=== PATIENT | male | born 1985 | race African-American/Black ===

== ENCOUNTER 2021-03-27 19:14 | Inpatient (IN) | payer BC ==
[~2021-03-27] VITALS: Ht 162.6 cm; Wt 65.9 kg
[2021-03-27 19:00] VITALS: BP 102/61
--- NOTE | 2021-03-27 19:44 | PDOC1 ---
History and Physical Date of Service: DOS: DATE: 03/27/21 TIME: 19:37 Chief Complaint: Chief Complain: Chest pain History of Present Illness: HPI: Patient is a 35-year-old -[place] male presented to outside emergency room today due to chest pain along with generalized unwell feeling. Patient reports his symptoms started Wednesday upper respiratory symptoms. He also notes that he has had left-sided chest pain since Wednesday as well. Terms of his chest pain that is left-sided does not really radiate. It is kind of an aching sort of pressure. Reports to me that in his early 20s he would get similar type chest pains have been seen multiple times today and said work-up was negative. Had a recent uncle who from [place] at age of 36. He was incarcerated for several years and discharged from there in 2019. Says he really does not have any problems with his chest pain until this week. Patient is Pfizer COVID vaccinated x2. COVID-positive at outside hospital. Not requiring any supplemental O2. Past Medical/Surgical History: PMH/PSH: Denies any past medical history Allergies: Allergies: Coded Allergies: No Known Drug Allergies (Unverified , 04/27/20) Family History: Family History: Uncle with early [place]. His noticed Social History: Social History: Occasional alcohol use. Occasional vape use. Denies drug use Current Medications: Current Medications Current Medications Ondansetron HCl (Zofran) 4 mg PRN Q6HRS PRN IVP NAUSEA/VOMITING; Start 03/27/21 at 19:45; Status UNV Calcium Carbonate/ Glycine (Tums) 500 mg PRN Q3HRS PRN PO UPSET STOMACH; Start 03/27/21 at 19:45; Status UNV Zolpidem Tartrate (Ambien) 5 mg PRN QHS PRN PO INSOMNIA, MAY REPEAT IN 1HR; Start 03/27/21 at 19:45; Status UNV Info (Non-Icu Electrolyte Protocol) 1 ea PRN DAILY PRN MC SEE COMMENTS; Start 03/27/21 at 19:45; Status UNV Oxycodone HCl (Roxicodone) 5 mg PRN Q3HRS PRN PO BREAKTHROUGH PAIN; Start 03/27/21 at 19:45; Status UNV Morphine Sulfate (Morphine Sulfate) 1 mg PRN Q1HR PRN IV PAIN; Start 03/27/21 at 19:45; Status UNV Morphine Sulfate (Morphine Sulfate) 2 mg PRN Q1HR PRN IV PAIN; Start 03/27/21 a t 19:45; Status UNV Senna/Docusate Sodium (Senna Plus) 1 tab BID PO ; Start 03/27/21 at 21:00; Status UNV Active Scripts Active No Active Prescriptions or Reported Medications ROS: Review of Systems Review of System Unless noted in HPI 14 point review of systems was negative Physical Exam: Physcial Exam: GEN: No apparent distress. Alert and oriented HEENT: Normal cephalic, atraumatic, external auditory canals are patent EYES: Extraocular muscles are intact, pupil are equally round and reactive to light and accommodation MUSCULOSKELETAL: Well developed , well nourished, good range of motion ENDOCRINE: No thyromegaly was palpated LYMPHATICS: No cervical chain or axillary nodes were noted HEMATOPOIETIC: No bruising NECK: Supple, no JVD, no thyromegaly was noted LUNGS: Clear to auscultation in all lung ward without rhonchi or wheezing HEART: RRR, S!, S2 present. Peripheral pulses intact, no obvious murmurs noted ABDOMEN: Soft, nontender. Positive bowel sounds, no organomegaly, normal bowel sounds EXTREMITIES: Without clubbing, cyanosis, or edema. Pedal pulses intact. Negative Homans sign NEUROLOGIC: Normal speech and tone. A&O x 3, moves all extremities, no obvious focal deficits PSYCHIATRIC: Normal affect, normal mood. Stable SKIN: No ulcerations or rashes, good skin turgor, no jaundice VASCULAR: Good capillary refill, neurovascular bundle appears to be intact Assessment/Plan Assessment/Plan Unstable angina history of close relative with early [place], COVID-19 -Presented to outside hospital with upper respiratory symptoms and chest pain -Testing positive for COVID-19. He has received Pneuron vaccines x2. -Start dexamethasone. Not requiring any oxygen do not see need for antibiotics at the moment neither -In terms of chest pain troponin at outside facility was 30. Was started on heparin drip. Pain resolved with outside nitroglycerin -Cardiology consult -We will check an echo -Continue heparin drip from outside for now -Watch troponins overnight -Cardiac diet Justifications for Admission Other Justification RAMIN RIZO MD Mar 27, 2021 19:44
[2021-03-27] MEDS ORDERED: ELECTROLYTE (NON-ICU) PROTOCOL. MC PRN (19:45)
[2021-03-27] MEDS ORDERED: MORPHINE SULFATE 2 MG/ML INJ. IV PRN ×2 (19:45)
[2021-03-27] MEDS ORDERED: ONDANSETRON PF 4 MG/2 ML VIAL. IVP PRN (19:45)
[2021-03-27] MEDS ORDERED: oxyCODONE IR 5 MG TABLET PO PRN (19:45)
[2021-03-27] MEDS ORDERED: NITROGLYCERIN SUBLINGUAL 0.4 MG BOTTLE OF 25. SL PRN (19:45)
[2021-03-27] MEDS ORDERED: HEPARIN 25,000UTS/250ML PREMIX 250 ML IV PRN (19:45)
[2021-03-27] MEDS ORDERED: CALCIUM CARBONATE 500 MG TAB.CHEW PO PRN (19:45)
[2021-03-27] MEDS ORDERED: ZOLPIDEM 5 MG TABLET. PO PRN (19:45)
[2021-03-27] MEDS: SENNOSIDES/DOCUSATE 8.6/50MG TABLET. PO SCH (20:41)
[2021-03-27 22:26] LABS: BASO % 1 % (0-3); EOS # 0.5 x10^3/uL (0.0-0.7); EOS % 9 % (0-3); HEMOGLOBIN 14.4 g/dL (13.0-17.5); LYMPH # 2.4 x10^3/uL (1.0-4.8); LYMPH % 40 % (24-48); MEAN CORPUSCULAR HEMOGLOBIN 31 pg (25-35); MEAN CORPUSCULAR HGB CONC 34 g/dL (31-37); MEAN CORPUSCULAR VOLUME 89 fL (79-100); MONO % 16 % (0-9); NEUT # 2.1 x10^3/uL (1.8-7.7); NEUT % 35 % (31-73); PLATELET COUNT 225 x10^3/uL (140-400); RED BLOOD COUNT 4.72 x10^6/uL (4.30-5.70); RED CELL DISTRIBUTION WIDTH 12.9 % (11.5-14.5); WHITE BLOOD COUNT 6.1 x10^3/uL (4.0-11.0)
[2021-03-27 22:46] LABS: ALBUMIN 3.6 g/dL (3.4-5.0); ALBUMIN/GLOBULIN RATIO 0.9 (1.0-1.7); CALCIUM 8.3 mg/dL (8.5-10.1); CREATININE 0.9 mg/dL (0.7-1.3); GFR 116.9; TOTAL BILIRUBIN 0.3 mg/dL (0.2-1.0); TOTAL PROTEIN 7.4 g/dL (6.4-8.2)
[2021-03-27 22:47] LABS: CHOLESTEROL/HDL RATIO 2.9
[2021-03-27 22:52] VITALS: BP 109/61
[2021-03-28 00:14] LABS: BILIRUBIN,URINE NEGATIVE (NEG); CLARITY,URINE CLEAR; COLOR,URINE YELLOW; NITRITE,URINE NEGATIVE (NEG); PROTEIN,URINE NEGATIVE (NEG-TRACE)
[2021-03-28 00:21] LABS: BACTERIA,URINE 0 /HPF (0-FEW); RBC,URINE 0 /HPF (0-2); WBC,URINE RARE /HPF (0-4)
[2021-03-28 02:36] VITALS: BP 93/52
[2021-03-28 07:00] VITALS: BP 90/50
[2021-03-28] MEDS: SENNOSIDES/DOCUSATE 8.6/50MG TABLET. PO SCH (08:34)
[2021-03-28] MEDS ORDERED: DEXAMETHASONE SOD PHOS 4 MG/ML VIAL IVP SCH (09:00)
--- NOTE | 2021-03-28 09:18 | PDOC ---
[employer] PROGRESS NOTE Date of Service DOS: DATE: 03/28/21 TIME: 09:17 Chief Complaint Chief Complaint A/P: Chest pain -more likely GERD or pleuritic pain. Possibility of myocarditis will go home on aspirin Abnormal EKG -strain from acute COVID-19 mild myocarditis. She went cardiology was on heparin gtt. can discontinue home aspirin therapy COVID 19 -fully vaccinated with 2 doses of Pfizer is not eligible for his booster for another month. Not hypoxic and feels his symptoms are actually improving he can go home with supportive care History of Present Illness History of Present Illness Mr Ashley is a 35 year old male who presents with 4-day history of chills, body aches, fatigue, nasal congestion, sore throat and chest pain to [facility] in [place], [place]. Patient describes his chest pain as an intermittent pressure, as if someone is pushing on his chest. His sore throat has progressively worsen ed. Patient received Pfizer vaccine x2 this fall, but has not had a flu shot this season. Patient denies objective fever, palpitations, shortness of breath and productive cough. WBC 4.9, Hb 14.5, platelets 222, NA 139, K3.8, BUN 10, CR 0.9, glucose 81, LFTs within normal laboratory limits, troponin high-sensitivity is 30, influenza negative rapid COVID-19 positive, INR 1 Chest radiograph with no acute abnormality EKG sinus rate of [address] elevations in 1 to V3 to V6 V4 V5 and TWI in 3. 03/28. Seen bedside. He was transferred to [facility] for further care and cardiac evaluation. High-sensitivity troponin this point is 30 and telemetry with no significant abnormalities. Discussed with cardiology as patient's pain has completely resolved and he is not hypoxic this could be mild or early myocarditis due to COVID as he is already recovering and is 5 days in the continue to isolate for an additional 5 days and follow-up outpatient with cardiology 10 days from now to schedule a TTE. Significant cardiac disease in a paternal uncle in his 30s from unknown cardiac disease, otherwise no other history. Recommended to take aspirin for the next 30 days to decrease risk of thrombosis due to COVID-19. Vitals/I&O Vitals/I&O: Vital Signs Date Time Temp Pulse Resp B/P (MAP) Pulse Ox O2 Delivery O2 Flow Rate FiO2 03/28/21 07:00 96.2 48 15 90/50 (63) 98 Room Air 96.2 I & O 03/27/21 03/27/21 03/28/21 15:00 23:00 07:00 Intake Total 900 ml 600 ml Balance 900 ml 600 ml Physical Exam General: Alert, Oriented X3, Cooperative, No acute distress Heart: Regular rate, Normal S1, Normal S2 Lungs: Clear Abdomen: Normal bowel sounds, Soft Extremities: No clubbing, No cyanosis Skin: No rashes, No breakdown Labs Labs: Laboratory Tests Test 03/27/21 22:10 03/28/21 00:05 03/28/21 04:30 White Blood Count 6.1 x10^3/uL (4.0-11.0) Red Blood Count 4.72 x10^6/uL (4.30-5.70) Hemoglobin 14.4 g/dL (13.0-17.5) Hematocrit 42.0 % (39.0-53.0) Mean Corpuscular Volume 89 fL (79-100) Mean Corpuscular Hemoglobin 31 pg (25-35) Mean Corpuscular Hemoglobin Concent 34 g/dL (31-37) Red Cell Distribution Width 12.9 % (11.5-14.5) Platelet Count 225 x10^3/uL (140-400) Neutrophils (%) (Auto) 35 % (31-73) Lymphocytes (%) (Auto) 40 % (24-48) Monocytes (%) (Auto) 16 % (0-9) Eosinophils (%) (Auto) 9 % (0-3) Basophils (%) (Auto) 1 % (0-3) Neutrophils # (Auto) 2.1 x10^3/uL (1.8-7.7) Lymphocytes # (Auto) 2.4 x10^3/uL (1.0-4.8) Monocytes # (Auto) 1.0 x10^3/uL (0.0-1.1) Eosinophils # (Auto) 0.5 x10^3/uL (0.0-0.7) Basophils # (Auto) 0.0 x10^3/uL (0.0-0.2) Heparin Anti-Xa Act, Unfractionated 0.24 IU/mL (0.30-0.70) 0.41 IU/mL (0.30-0.70) Sodium Level 142 mmol/L (136-145) Potassium Level 4.0 mmol/L (3.5-5.1) Chloride Level 106 mmol/L (98-107) Carbon Dioxide Level 29 mmol/L (21-32) Anion Gap 7 (6-14) Blood Urea Nitrogen 11 mg/dL (8-26) Creatinine 0.9 mg/dL (0.7-1.3) Estimated GFR (Cockcroft-Gault) 116.9 BUN/Creatinine Ratio 12 (6-20) Glucose Level 102 mg/dL (70-99) Calcium Level 8.3 mg/dL (8.5-10.1) Total Bilirubin 0.3 mg/dL (0.2-1.0) Aspartate Amino Transf (AST/SGOT) 16 U/L (15-37) Alanine Aminotransferase (ALT/SGPT) 21 U/L (16-63) Alkaline Phosphatase 80 U/L (46-116) Troponin I High Sensitivity 30 ng/L (4-75) Total Protein 7.4 g/dL (6.4-8.2) Albumin 3.6 g/dL (3.4-5.0) Albumin/Globulin Ratio 0.9 (1.0-1.7) Triglycerides Level 55 mg/dL (0-150) Cholesterol Level 120 mg/dL (0-200) LDL Cholesterol, Calculated 67 mg/dL (0-100) VLDL Cholesterol, Calculated 11 mg/dL (0-40) Non-HDL Cholesterol Calculated 78 mg/dL (0-129) HDL Cholesterol 42 mg/dL (40-60) Cholesterol/HDL Ratio 2.9 Thyroid Stimulating Hormone (TSH) 1.026 uIU/mL (0.358-3.74) Urine Collection Type Unknown Urine Color Yellow Urine Clarity Clear Urine pH 6.0 (<5.0-8.0) Urine Specific [place] 1.025 (1.000-1.030) Urine Protein Negative mg/dL (NEG-TRACE) Urine Glucose (UA) Negative mg/dL (NEG) Urine Ketones (Stick) Negative mg/dL (NEG) Urine Blood Negative (NEG) Urine Nitrite Negative (NEG) Urine Bilirubin Negative (NEG) Urine Urobilinogen Dipstick 1.0 mg/dL (0.2 mg/dL) Urine Leukocyte Esterase Negative (NEG) Urine RBC 0 /HPF (0-2) Urine WBC Rare /HPF (0-4) Urine Squamous Epithelial Cells Few /LPF Urine Bacteria 0 /HPF (0-FEW) Urine Mucus Slight /LPF Comment Review of Relevant I have reviewed the following items rogelio (where applicable) has been applied. Medications: Current Medications Medications (Trade) Dose Ordered Sig/Tristin Route PRN Reason Start Time Stop Time Status Last Admin Dose Admin Senna/Docusate Sodium (Senna Plus) 1 tab BID PO 03/27/21 21:00 03/27/21 20:41 Dexamethasone Sodium Phosphate (Decadron) 6 mg DAILY IVP 03/28/21 09:00 03/28/21 08:33 Justifications for Admission Other Justification RAMIN BHAGAT MD Mar 28, 2021 09:18
[2021-03-28 10:17] VITALS: BP 107/67
--- NOTE | 2021-03-28 10:19 | PDOC2 ---
YOLY MENJIVAR [employer]PERATOR 03/28/21 1019: CARDIAC CONSULT DATE OF CONSULT Date of Consult DATE: 03/28/21 TIME: 10:06 REASON FOR CONSULT Reason for Consult: Chest pain REFERRING PHYSICIAN Referring Physician: Talha SOURCE Source: Chart review, Patient HISTORY OF PRESENT ILLNESS HISTORY OF PRESENT ILLNESS This is a 35 yo male admitted for complains of chest pain. Transferred from [facility]. Reports that this was midchest pressure without nausea vomiting or palpitations and nonradiating. He has been having body aches and productive cough with yellow sputum with fever and chills. He is vaccinated but was tested + for covid-19. No cardiac history and family member with premature [place] is his uncle. He vapes otherwise no recreational drug use. He does not take any routine medications. No further recurrence of apin. PAST MEDICAL HISTORY Past Medical History No pertinent history PAST SURGICAL HISTORY Past Surgical History: No pertinent history FAMILY HISTORY Family History: Coronary Artery Disease (uncleae in his 30s) SOCIAL HISTORY Smoke: No (vaping) ALCOHOL: occassional Drugs: None Lives: with Family CURRENT MEDICATIONS CURRENT MEDICATIONS Current Medications Medications (Trade) Dose Ordered Sig/Tristin Route PRN Reason Start Time Stop Time Status Last Admin Dose Admin Senna/Docusate Sodium (Senna Plus) 1 tab BID PO 03/27/21 21:00 03/27/21 20:41 Dexamethasone Sodium Phosphate (Decadron) 6 mg DAILY IVP 03/28/21 09:00 03/28/21 08:33 ALLERGIES ALLERGIES: Coded Allergies: No Known Drug Allergies (Unverified , 04/27/20) ROS Review of System 14 point ROS evaluated with pertinent positive noted per HPI PHYSICAL EXAM General: Alert, Oriented X3, Cooperative, No acute distress HEENT: Atraumatic, Mucous membr. moist/pink Lungs: Clear to auscultation, Normal air movement Heart: Regular rate (SR), Normal S1, Normal S2, No murmurs Abdomen: Soft, No tenderness Extremities: No cyanosis, No edema Skin: No breakdown, No significant lesion Neuro: Normal speech, Sensation intact Psych/Mental Status: Mental status NL, Mood NL MUSCULOSKELETAL: Full range of motion without pain VITALS/I&O VITALS/I&O: Vital Signs Date Time Temp Pulse Resp B/P (MAP) Pulse Ox O2 Delivery O2 Flow Rate FiO2 03/28/21 07:00 96.2 48 15 90/50 (63) 98 Room Air 96.2 I & O 03/27/21 03/27/21 03/28/21 15:00 23:00 07:00 Intake Total 900 ml 600 ml Balance 900 ml 600 ml LABS Lab: Laboratory Tests Test 03/27/21 22:10 03/28/21 00:05 03/28/21 04:30 White Blood Count 6.1 x10^3/uL (4.0-11.0) Red Blood Count 4.72 x10^6/uL (4.30-5.70) Hemoglobin 14.4 g/dL (13.0-17.5) Hematocrit 42.0 % (39.0-53.0) Mean Corpuscular Volume 89 fL (79-100) Mean Corpuscular Hemoglobin 31 pg (25-35) Mean Corpuscular Hemoglobin Concent 34 g/dL (31-37) Red Cell Distribution Width 12.9 % (11.5-14.5) Platelet Count 225 x10^3/uL (140-400) Neutrophils (%) (Auto) 35 % (31-73) Lymphocytes (%) (Auto) 40 % (24-48) Monocytes (%) (Auto) 16 % (0-9) H Eosinophils (%) (Auto) 9 % (0-3) H Basophils (%) (Auto) 1 % (0-3) Neutrophils # (Auto) 2.1 x10^3/uL (1.8-7.7) Lymphocytes # (Auto) 2.4 x10^3/uL (1.0-4.8) Monocytes # (Auto) 1.0 x10^3/uL (0.0-1.1) Eosinophils # (Auto) 0.5 x10^3/uL (0.0-0.7) Basophils # (Auto) 0.0 x10^3/uL (0.0-0.2) Heparin Anti-Xa Act, Unfractionated 0.24 IU/mL (0.30-0.70) L 0.41 IU/mL (0.30-0.70) Sodium Level 142 mmol/L (136-145) Potassium Level 4.0 mmol/L (3.5-5.1) Chloride Level 106 mmol/L (98-107) Carbon Dioxide Level 29 mmol/L (21-32) Anion Gap 7 (6-14) Blood Urea Nitrogen 11 mg/dL (8-26) Creatinine 0.9 mg/dL (0.7-1.3) Estimated GFR (Cockcroft-Gault) 116.9 BUN/Creatinine Ratio 12 (6-20) Glucose Level 102 mg/dL (70-99) H Calcium Level 8.3 mg/dL (8.5-10.1) L Total Bilirubin 0.3 mg/dL (0.2-1.0) Aspartate Amino Transferase (AST) 16 U/L (15-37) Alanine Aminotransferase (ALT) 21 U/L (16-63) Alkaline Phosphatase 80 U/L (46-116) Troponin I High Sensitivity 30 ng/L (4-75) Total Protein 7.4 g/dL (6.4-8.2) Albumin 3.6 g/dL (3.4-5.0) Albumin/Globulin Ratio 0.9 (1.0-1.7) L Triglycerides Level 55 mg/dL (0-150) Cholesterol Level 120 mg/dL (0-200) LDL Cholesterol, Calculated 67 mg/dL (0-100) VLDL Cholesterol, Calculated 11 mg/dL (0-40) Non-HDL Cholesterol Calculated 78 mg/dL (0-129) HDL Cholesterol 42 mg/dL (40-60) Cholesterol/HDL Ratio 2.9 Thyroid Stimulating Hormone (TSH) 1.026 uIU/mL (0.358-3.74) Urine Collection Type Unknown Urine Color Yellow Urine Clarity Clear Urine pH 6.0 (<5.0-8.0) Urine Specific [place] 1.025 (1.000-1.030) Urine Protein Negative mg/dL (NEG-TRACE) Urine Glucose (UA) Negative mg/dL (NEG) Urine Ketones (Stick) Negative mg/dL (NEG) Urine Blood Negative (NEG) Urine Nitrite Negative (NEG) Urine Bilirubin Negative (NEG) Urine Urobilinogen Dipstick 1.0 mg/dL (0.2 mg/dL) Urine Leukocyte Esterase Negative (NEG) Urine RBC 0 /HPF (0-2) Urine WBC Rare /HPF (0-4) Urine Squamous Epithelial Cells Few /LPF Urine Bacteria 0 /HPF (0-FEW) Urine Mucus Slight /LPF Laboratory Tests 03/27/21 22:10 Laboratory Tests 03/27/21 22:10 ASSESSMENT/PLAN ASSESSMENT/PLAN 1. Atypical CP: likely from episodes of intractable coughing and chest congestion. Trops are normal, EKG SR with early repolarization 2. Viral syndrome with covid-19: vaccinated 3. Vaping 4. Asymptomatic SB: lowest mid40s mainly while asleep Recommendations 1. No further cardiac workup, consider outpt TTE once recovered fromc covid-19 2. May DC from cardiac perspective. MAGAN ORTIZ MD 03/28/21 1420: CARDIAC CONSULT ASSESSMENT/PLAN ASSESSMENT/PLAN Patient seen and evaluated. He is feeling better today. I agree with our nurse practitioners assessment and plan as above. Atypical chest pain. Associated with extensive coughing. Normal troponin. EKG without acute changes. Would continue present medications. Outpatient echo once recovered from COVID. COVID-19. Continue as per the primary and pulmonary services. Mild asymptomatic sinus bradycardia. This occurs usually while asleep. No specific work-up at this time. YOLY MENJIVAR APRN Mar 28, 2021 10:19 MAGAN ORTIZ MD Mar 28, 2021 14:20
--- NOTE | 2021-03-28 13:06 | NUR ---
SS following for discharge planning. SS reviewed pt chart and discussed with pt RN. Pt is from home and is currently on room air. COVID19 positive. Discharge order on the chart for home with self care.
[2021-03-28] MEDS ORDERED: CALC200T23 PO (13:07)
[2021-03-28] MEDS ORDERED: ASPI-886 PO (13:07)
--- NOTE | 2021-03-28 13:13 | PDOC3 ---
Discharge Summary Visit Information Date of Admission: Mar 27, 2021 Date of Discharge: Mar 28, 2021 Admitting Diagnosis: Chest pain Final Diagnosis Chest pain Brief Hospital Course Allergies Allergies Coded Allergies Type Severity Reaction Last Updated Verified No Known Drug Allergies 04/27/20 No Vital Signs Vital Signs Date Time Temp Pulse Resp B/P (MAP) Pulse Ox O2 Delivery O2 Flow Rate FiO2 03/28/21 10:17 95.3 53 20 107/67 (80) 100 Room Air 95.3 Lab Results Laboratory Tests Test 03/27/21 22:10 03/28/21 00:05 03/28/21 04:30 03/28/21 10:25 White Blood Count 6.1 x10^3/uL (4.0-11.0) Red Blood Count 4.72 x10^6/uL (4.30-5.70) Hemoglobin 14.4 g/dL (13.0-17.5) Hematocrit 42.0 % (39.0-53.0) Mean Corpuscular Volume 89 fL (79-100) Mean Corpuscular Hemoglobin 31 pg (25-35) Mean Corpuscular Hemoglobin Concent 34 g/dL (31-37) Red Cell Distribution Width 12.9 % (11.5-14.5) Platelet Count 225 x10^3/uL (140-400) Neutrophils (%) (Auto) 35 % (31-73) Lymphocytes (%) (Auto) 40 % (24-48) Monocytes (%) (Auto) 16 % (0-9) Eosinophils (%) (Auto) 9 % (0-3) Basophils (%) (Auto) 1 % (0-3) Neutrophils # (Auto) 2.1 x10^3/uL (1.8-7.7) Lymphocytes # (Auto) 2.4 x10^3/uL (1.0-4.8) Monocytes # (Auto) 1.0 x10^3/uL (0.0-1.1) Eosinophils # (Auto) 0.5 x10^3/uL (0.0-0.7) Basophils # (Auto) 0.0 x10^3/uL (0.0-0.2) Heparin Anti-Xa Act, Unfractionated 0.24 IU/mL (0.30-0.70) 0.41 IU/mL (0.30-0.70) 0.64 IU/mL (0.30-0.70) Sodium Level 142 mmol/L (136-145) Potassium Level 4.0 mmol/L (3.5-5.1) Chloride Level 106 mmol/L (98-107) Carbon Dioxide Level 29 mmol/L (21-32) Anion Gap 7 (6-14) Blood Urea Nitrogen 11 mg/dL (8-26) Creatinine 0.9 mg/dL (0.7-1.3) Estimated GFR (Cockcroft-Gault) 116.9 BUN/Creatinine Ratio 12 (6-20) Glucose Level 102 mg/dL (70-99) Calcium Level 8.3 mg/dL (8.5-10.1) Total Bilirubin 0.3 mg/dL (0.2-1.0) Aspartate Amino Transf (AST/SGOT) 16 U/L (15-37) Alanine Aminotransferase (ALT/SGPT) 21 U/L (16-63) Alkaline Phosphatase 80 U/L (46-116) Troponin I High Sensitivity 30 ng/L (4-75) Total Protein 7.4 g/dL (6.4-8.2) Albumin 3.6 g/dL (3.4-5.0) Albumin/Globulin Ratio 0.9 (1.0-1.7) Triglycerides Level 55 mg/dL (0-150) Cholesterol Level 120 mg/dL (0-200) LDL Cholesterol, Calculated 67 mg/dL (0-100) VLDL Cholesterol, Calculated 11 mg/dL (0-40) Non-HDL Cholesterol Calculated 78 mg/dL (0-129) HDL Cholesterol 42 mg/dL (40-60) Cholesterol/HDL Ratio 2.9 Thyroid Stimulating Hormone (TSH) 1.026 uIU/mL (0.358-3.74) Urine Collection Type Unknown Urine Color Yellow Urine Clarity Clear Urine pH 6.0 (<5.0-8.0) Urine Specific [place] 1.025 (1.000-1.030) Urine Protein Negative mg/dL (NEG-TRACE) Urine Glucose (UA) Negative mg/dL (NEG) Urine Ketones (Stick) Negative mg/dL (NEG) Urine Blood Negative (NEG) Urine Nitrite Negative (NEG) Urine Bilirubin Negative (NEG) Urine Urobilinogen Dipstick 1.0 mg/dL (0.2 mg/dL) Urine Leukocyte Esterase Negative (NEG) Urine RBC 0 /HPF (0-2) Urine WBC Rare /HPF (0-4) Urine Squamous Epithelial Cells Few /LPF Urine Bacteria 0 /HPF (0-FEW) Urine Mucus Slight /LPF Laboratory Tests Test 03/27/21 22:10 03/28/21 00:05 03/28/21 04:30 03/28/21 10:25 White Blood Count 6.1 x10^3/uL (4.0-11.0) Red Blood Count 4.72 x10^6/uL (4.30-5.70) Hemoglobin 14.4 g/dL (13.0-17.5) Hematocrit 42.0 % (39.0-53.0) Mean Corpuscular Volume 89 fL (79-100) Mean Corpuscular Hemoglobin 31 pg (25-35) Mean Corpuscular Hemoglobin Concent 34 g/dL (31-37) Red Cell Distribution Width 12.9 % (11.5-14.5) Platelet Count 225 x10^3/uL (140-400) Neutrophils (%) (Auto) 35 % (31-73) Lymphocytes (%) (Auto) 40 % (24-48) Monocytes (%) (Auto) 16 % (0-9) Eosinophils (%) (Auto) 9 % (0-3) Basophils (%) (Auto) 1 % (0-3) Neutrophils # (Auto) 2.1 x10^3/uL (1.8-7.7) Lymphocytes # (Auto) 2.4 x10^3/uL (1.0-4.8) Monocytes # (Auto) 1.0 x10^3/uL (0.0-1.1) Eosinophils # (Auto) 0.5 x10^3/uL (0.0-0.7) Basophils # (Auto) 0.0 x10^3/uL (0.0-0.2) Heparin Anti-Xa Act, Unfractionated 0.24 IU/mL (0.30-0.70) 0.41 IU/mL (0.30-0.70) 0.64 IU/mL (0.30-0.70) Sodium Level 142 mmol/L (136-145) Potassium Level 4.0 mmol/L (3.5-5.1) Chloride Level 106 mmol/L (98-107) Carbon Dioxide Level 29 mmol/L (21-32) Anion Gap 7 (6-14) Blood Urea Nitrogen 11 mg/dL (8-26) Creatinine 0.9 mg/dL (0.7-1.3) Estimated GFR (Cockcroft-Gault) 116.9 BUN/Creatinine Ratio 12 (6-20) Glucose Level 102 mg/dL (70-99) Calcium Level 8.3 mg/dL (8.5-10.1) Total Bilirubin 0.3 mg/dL (0.2-1.0) Aspartate Amino Transf (AST/SGOT) 16 U/L (15-37) Alanine Aminotransferase (ALT/SGPT) 21 U/L (16-63) Alkaline Phosphatase 80 U/L (46-116) Troponin I High Sensitivity 30 ng/L (4-75) Total Protein 7.4 g/dL (6.4-8.2) Albumin 3.6 g/dL (3.4-5.0) Albumin/Globulin Ratio 0.9 (1.0-1.7) Triglycerides Level 55 mg/dL (0-150) Cholesterol Level 120 mg/dL (0-200) LDL Cholesterol, Calculated 67 mg/dL (0-100) VLDL Cholesterol, Calculated 11 mg/dL (0-40) Non-HDL Cholesterol Calculated 78 mg/dL (0-129) HDL Cholesterol 42 mg/dL (40-60) Cholesterol/HDL Ratio 2.9 Thyroid Stimulating Hormone (TSH) 1.026 uIU/mL (0.358-3.74) Urine Collection Type Unknown Urine Color Yellow Urine Clarity Clear Urine pH 6.0 (<5.0-8.0) Urine Specific [place] 1.025 (1.000-1.030) Urine Protein Negative mg/dL (NEG-TRACE) Urine Glucose (UA) Negative mg/dL (NEG) Urine Ketones (Stick) Negative mg/dL (NEG) Urine Blood Negative (NEG) Urine Nitrite Negative (NEG) Urine Bilirubin Negative (NEG) Urine Urobilinogen Dipstick 1.0 mg/dL (0.2 mg/dL) Urine Leukocyte Esterase Negative (NEG) Urine RBC 0 /HPF (0-2) Urine WBC Rare /HPF (0-4) Urine Squamous Epithelial Cells Few /LPF Urine Bacteria 0 /HPF (0-FEW) Urine Mucus Slight /LPF Brief Hospital Course Mr Ashley is a 35 year old male who presents with 4-day history of chills, body aches, fatigue, nasal congestion, sore throat and chest pain to [facility] in [place], [place]. Patient describes his chest pain as an intermittent pressure, as if someone is pushing on his chest. His sore throat has progressively worsene d. Patient received Pfizer vaccine x2 this fall, but has not had a flu shot this season. Patient denies objective fever, palpitations, shortness of breath and productive cough. WBC 4.9, Hb 14.5, platelets 222, NA 139, K3.8, BUN 10, CR 0.9, glucose 81, LFTs within normal laboratory limits, troponin high-sensitivity is 30, influenza negative rapid COVID-19 positive, INR 1 Chest radiograph with no acute abnormality EKG sinus rate of [address] elevations in 1 to V3 to V6 V4 V5 and TWI in 3. 03/28. Seen bedside. He was transferred to [facility] for further care and cardiac evaluation. High-sensitivity troponin this point is 30 and telemetry with no significant abnormalities. Discussed with cardiology as patient's pain has completely resolved and he is not hypoxic this could be mild or early myocarditis due to COVID as he is already recovering and is 5 days in the continue to isolate for an additional 5 days and follow-up outpatient with cardiology 10 days from now to schedule a TTE. Significant cardiac disease in a paternal uncle in his 30s from unknown cardiac disease, otherwise no other history. Recommended to take aspirin for the next 30 days to decrease risk of thrombosis due to COVID-19. Consults: Cardiology Problem list: Chest pain -more likely GERD or pleuritic pain. Possibility of myocarditis will go home on aspirin Abnormal EKG -strain from acute COVID-19 mild myocarditis. She went cardiology was on heparin gtt. can discontinue home aspirin therapy COVID 19 -fully vaccinated with 2 doses of Pfizer is not eligible for his booster for another month. Not hypoxic and feels his symptoms are actually improving he can go home with supportive care Greater than 30 minutes spent on d/c home with self care. Discharge Information Condition at Discharge: Improved Follow Up: Weeks (2) Disposition/Orders: D/C to Home Scheduled Aspirin (Aspirin Ec) 81 Mg Tablet., 1 TAB PO DAILY for COVID 19 for 30 Days, #30 Ref 3 Prescribed by: RAMIN BHAGAT MD on 03/28/21 1307 Scheduled PRN Calcium Carbonate (Calcium Carbonate) 200 Mg Tab.chew, 500 MG PO PRN Q3HRS PRN for UPSET STOMACH for 30 Days, #30 Prescribed by: RAMIN BHAGAT MD on 03/28/21 1307 Justicifation of Admission Dx: Justifications for Admission: Justification of Admission Dx: Yes RAMIN BHAGAT MD Mar 28, 2021 13:13
== END 2021-03-28 15:45 | disposition home or self-care (01) | DRG 391 ==
LOC: 6 SOUTH 19:14 → INTOOBSV 19:14 → OBSVTOIN 19:35 → INTOOBSV 03-28 10:50 → OBSVTOIN 03-28 10:50
PROVIDERS: ADMIT Student in an Organized Health Care Education/Training Program; ATTEND Student in an Organized Health Care Education/Training Program
DX: K21.9 Gastro-esophageal reflux disease without esophagitis (principal); U07.1 COVID-19; Z82.49 Family history of ischemic heart disease and other diseases of the circulatory system; I51.4 Myocarditis, unspecified; R07.89 Other chest pain
CPT/HCPCS: 36415; 80053; 80061; 81001; 84443; 84484; 85025; 85520; G0379; J1100; G0378